=== PATIENT | male | born 1980 | race Caucasian/White ===

== ENCOUNTER 2017-09-20 05:13 | Emergency (ER) | payer SELFPAY ==
[2017-09-20 05:22] VITALS: BP 153/105; PULSE 97; RESP 20; TEMP 98.1; O2SAT 96
--- NOTE | 2017-09-20 05:42 | EDPHY ---
H & P Stated Complaint: TONGUE/THROAT PAIN FOR PAST 5 HOURS Time Seen by Provider: 09/20/17 05:26 HPI/ROS: Chief Complaint: Throat pain, tongue pain HPI: 37-year-old homeless male presenting complaining of pain in the back of his throat and the base of his tongue for the last 5 hr. Patient states that he has recently had cough and congestion a lot of throat clearing. He is able swallow. He is not having any difficulty breathing. He is also complaining of his feet being cold and is worried that he might have frostbite. No shortness of breath. No cough. No chest pain. No nausea or vomiting. Does not have a history of any allergies or anaphylaxis. No recent dental pain. ROS: 10 point Review of Systems is negative except as noted in the HPI. PMH: Denies Social History: No smoking, occasional alcohol, no recreational drug use Family History: non-contributory Physical Exam: Gen: Awake, Alert, No Distress HEENT: Nose: no rhinorrhea Eyes: PERRLA, EOMI Mouth: Moist mucosa oropharynx: There is no edema, a uvula is midline, bilateral peritonsillar per orders are normal. There is mild erythema. There is erythema consistent with postnasal drip. Tongue is entirely normal without any swelling. Airway is open Neck: Supple, no JVD Chest: nontender, lungs clear to auscultation Heart: S1, S2 normal, no murmur Abd: Soft, non-tender, no guarding Back: no CVA tenderness, no midline tenderness Ext: no edema, ft are cool to the touch. There is normal capillary refill. Normal coloration. 2+ dorsalis pedis pulses. Normal perfusion. 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, right finger pinned - Social History Smoking Status: Current every day smoker Constitutional: Initial Vital Signs Temperature (C) 36.7 C 09/20/17 05:18 Heart Rate 97 09/20/17 05:18 Respiratory Rate 20 09/20/17 05:18 Blood Pressure 153/105 H 09/20/17 05:18 O2 Sat (%) 96 09/20/17 05:18 O2 Delivery Mode Room Air Allergies/Adverse Reactions: No Known Allergies Allergy (Unverified 09/20/17 05:21) Home Medications: Medication Instructions Recorded NK [No Known Home Meds] 09/09/14 Medical Decision Making ED Course/Re-evaluation: 37-year-old homeless male with sore throat secondary to postnasal drip type symptoms. There is no evidence of focal infectious process. There is no angioedema. His feet are cool to the touch but there is normal perfusion in no findings suggestive of frostbite. He has been Re warmed here. Remainder of his physical exam is unremarkable. Will discharge him with referral to [facility] as an outpatient, return for any concerns. Departure - Departure Disposition: Home, Routine, Self-Care Clinical Impression: Viral upper respiratory infection Condition: Good Instructions: Upper Respiratory Infection (ED) Additional Instructions: Alternate acetaminophen (1000 mg) with ibuprofen (400 mg) every 4 hours as needed for fevers, chills, aches or pain. Follow up with [facility] in 2-3 days for further evaluation. Referrals: BENJAMIN GUTIERREZ [Primary Care Provider] - As per Instructions
== END 2017-09-20 05:54 | disposition home or self-care (01) ==
DX: J06.9 Acute upper respiratory infection, unspecified (principal); F17.200 Nicotine dependence, unspecified, uncomplicated

== ENCOUNTER 2018-03-18 | Emergency (ER) | payer MEDICAID | END 2018-03-18 15:48 | disposition home or self-care (01) ==